=== PATIENT | female | born 1975 | race Caucasian/White ===

== ENCOUNTER → 2017-04-10 | Outpatient (CLI) | payer OTHER ==
[~2017-04-10] MED LIST: ACET325T14 PO; LORA10CA PO; METR60GE TP; MV M PO; PIME30CR2 TP; RANI150T8 PO; VALA10004 PO
== END | disposition home or self-care (01) ==
LOC: CFH 14:00
PROVIDERS: ATTEND Internal Medicine Cardiovascular Disease
DX: I08.1 Rheumatic disorders of both mitral and tricuspid valves (principal)
CPT/HCPCS: 93306